=== PATIENT | male | born 1985 | race American Indian/Alaskan Native ===

== ENCOUNTER 2019-12-09 18:06 | Emergency (ER) | payer SELFPAY ==
[2019-12-09] MEDS ORDERED: HYDROcodone/ACETAMINOPHEN 7.5-325MG TAB PO ONE (19:38)
[2019-12-09] MEDS ORDERED: predniSONE 50 MG TAB PO ONE (19:38)
[2019-12-09] MEDS ORDERED: ONDANSETRON 4 MG ODT TAB PO ONE (19:38)
[2019-12-09 20:03] VITALS: BP 141/112
--- NOTE | 2019-12-09 20:16 | Emergency Department Report ---
ED General Adult HPI - General Chief complaint: Anxiety Stated complaint: ANXIETY/LOWER BACK/JOINT PAIN Source: patient Mode of arrival: Ambulatory Limitations: No Limitations - History of Present Illness Initial comments: Patient is a 34-year-old -[place] male with a history of HIV and chronic joint pains due to chronic osteoarthritis who presents to the ED with acute exacerbation of his chronic diffuse joint pains for the last 2 weeks after he ran out of his narcotic pain medications. Patient states that he usually takes [place] 5 mg - 325 mg prescribed by the pain clinic but states that he has not been to the pain clinic because he cannot afford the $250 consultation fee required during the visit. Patient states that he has also had worsening anxiety and insomnia because of a recent gastric biopsy procedure performed about 2 weeks ago, and whose results he has not been given. Patient states that in the last 3 days he has hardly slept because of worsening anxiety and worsening pain in his joints. Patient denies dizziness, syncope, fall, traumatic injury, heavy lifting, fever, chills, headache, abdominal pain, nausea and vomiting, chest pain, shortness of breath, dysuria, urinary frequency and urgency, lightheadedness or diarrhea, numbness and tingling or weakness of upper and lower extremities bilaterally. MD Complaint: Multiple joint pains; anxiety -: Sudden, week(s) (2) Location: upper extremity, lower extremity Radiation: non-radiation Severity scale (0 -10): 5 Quality: aching, sharp Consistency: constant Improves with: none Worsens with: movement Associated Symptoms: denies other symptoms. denies: confusion, chest pain, cough, diaphoresis, fever/chills, headaches, loss of appetite, malaise, nausea/vomiting, seizure, shortness of breath, syncope Treatments Prior to Arrival: none - Related Data Previous Rx's Medication Instructions Recorded Last Taken Type Baclofen [Lioresal] 10 mg PO Q8H PRN #21 tab 12/09/19 Unknown Rx hydrOXYzine PAMOATE [Vistaril] 25 mg PO Q8HR PRN #30 capsule 12/09/19 Unknown Rx predniSONE [Deltasone] 40 mg PO QDAY #10 tab 12/09/19 Unknown Rx traMADoL [Ultram] 50 mg PO Q6HR PRN #12 tablet 12/09/19 Unknown Rx Allergies Allergy/AdvReac Type Severity Reaction Status Date / Time No Known Allergies Allergy Unverified 12/09/19 18:09 ED Review of Systems ROS: Stated complaint: ANXIETY/LOWER BACK/JOINT PAIN Other details as noted in HPI Constitutional: denies: chills, fever Eyes: denies: eye pain, eye discharge, vision change ENT: denies: ear pain, throat pain Respiratory: denies: cough, shortness of breath, wheezing Cardiovascular: denies: chest pain, palpitations Endocrine: no symptoms reported Gastrointestinal: denies: abdominal pain, nausea, diarrhea Genitourinary: denies: urgency, dysuria Musculoskeletal: arthralgia (Diffuse joint pains), myalgia. denies: back pain, joint swelling Skin: denies: rash, lesions Neurological: denies: headache, weakness, paresthesias Psychiatric: anxiety, other (Insomnia). denies: depression Hematological/Lymphatic: denies: easy bleeding, easy bruising ED Past Medical Hx - Past Medical History Hx HIV: Yes Additional medical history: Chronic polyarticular joint pains - Surgical History Past Surgical History?: No - Social History Smoking Status: Current Every Day Smoker Substance Use Type: Alcohol, Marijuana - Medications Home Medications: Home Medications Medication Instructions Recorded Confirmed Last Taken Type Baclofen [Lioresal] 10 mg PO Q8H PRN #21 tab 12/09/19 Unknown Rx hydrOXYzine PAMOATE [Vistaril] 25 mg PO Q8HR PRN #30 capsule 12/09/19 Unknown Rx predniSONE [Deltasone] 40 mg PO QDAY #10 tab 12/09/19 Unknown Rx traMADoL [Ultram] 50 mg PO Q6HR PRN #12 tablet 12/09/19 Unknown Rx ED Physical Exam - General Limitations: No Limitations General appearance: alert, in no apparent distress, anxious - Head Head exam: Present: atraumatic, normocephalic, normal inspection - Eye Eye exam: Present: normal appearance, PERRL, EOMI Pupils: Present: normal accommodation - ENT ENT exam: Present: normal exam, normal orophraynx, mucous membranes moist, TM's normal bilaterally, normal external ear exam - Neck Neck exam: Present: normal inspection, full ROM - Respiratory Respiratory exam: Present: normal lung sounds bilaterally. Absent: respiratory distress, wheezes, rales, stridor, chest wall tenderness, accessory muscle use, decreased breath sounds - Cardiovascular Cardiovascular Exam: Present: regular rate, normal rhythm, normal heart sounds. Absent: systolic murmur, diastolic murmur, rubs, gallop - GI/Abdominal GI/Abdominal exam: Present: soft, normal bowel sounds. Absent: tenderness, guarding, rebound, hyperactive bowel sounds, hypoactive bowel sounds, organomegaly - Extremities Exam Extremities exam: Present: normal inspection, full ROM, tenderness (Palpable diffuse bilateral wrist, hand, knee and ankle joint tenderness), normal capillary refill - Back Exam Back exam: Present: normal inspection, full ROM, tenderness (Palpable lumbosacral paraspinal musculoskeletal tenderness), muscle spasm, paraspinal tenderness - Neurological Exam Neurological exam: Present: alert, oriented X3, CN II-XII intact, normal gait, reflexes normal - Psychiatric Psychiatric exam: Present: normal affect, normal mood, anxious - Skin Skin exam: Present: warm, dry, intact, normal color. Absent: rash ED Course Vital Signs 12/09/19 18:10 Temperature 98.3 F Pulse Rate 74 Respiratory 18 Rate Blood Pressure 178/115 O2 Sat by Pulse 100 Oximetry ED Medical Decision Making - Medical Decision Making This is a 34-year-old -[place] male with a history of HIV and chronic joint pains due to chronic osteoarthritis who presents to the ED with acute exacerbation of his chronic diffuse joint pains for the last 2 weeks after he ran out of his narcotic pain medications. Patient states that he usually takes [place] 5 mg - 325 mg prescribed by the pain clinic but states that he has not been to the pain clinic because he cannot afford the $250 consultation fee required during the visit. Patient states that he has also had worsening anxiet y and insomnia because of a recent gastric biopsy procedure performed about 2 weeks ago, and whose results he has not been given. Patient states that in the last 3 days he has hardly slept because of worsening anxiety and worsening pain in his joints. In the ED, patient is alert and oriented x3 and is not in distress. Patient was treated for pain in the ED and discharged home on pain medications and muscle relaxants, and was advised to follow-up with his primary care physician as previously scheduled. Patient was advised to return to the ED immediately if symptoms get worse. - Differential Diagnosis Chronic pain; anxiety; chronic osteoarthritis; muscle spasm; tendinitis Critical care attestation.: If time is entered above; I have spent that time in minutes in the direct care of this critically ill patient, excluding procedure time. ED Disposition Clinical Impression: Chronic pain syndrome, Spasm of muscle of lower back, Anxiety as acute reaction to exceptional stress Disposition: TO HOME OR SELFCARE Is pt being admited?: No Does the pt Need Aspirin: No Condition: Stable Instructions: Chronic Pain (ED), Generalized Anxiety Disorder (ED), Muscle Spasm (ED) Additional Instructions: Take medication with food, drink plenty of fluids and follow-up with your primary care physician in 5 to 7 days for reevaluation. Return to the ED immediately if symptoms get worse. Prescriptions: predniSONE [Deltasone] 40 mg PO QDAY #10 tab Baclofen [Lioresal] 10 mg PO Q8H PRN #21 tab PRN Reason: Muscle Spasm traMADoL [Ultram] 50 mg PO Q6HR PRN #12 tablet PRN Reason: Pain hydrOXYzine PAMOATE [Vistaril] 25 mg PO Q8HR PRN #30 capsule PRN Reason: Anxiety Referrals: [facility] [Provider Group] - 3-5 Days Time of Disposition: 20:19 Print Language: HEBREW
== END 2019-12-09 20:35 | disposition home or self-care (01) ==
LOC: ED 18:06
DX: F41.1 Generalized anxiety disorder (principal); F43.0 Acute stress reaction; M62.830 Muscle spasm of back; G89.4 Chronic pain syndrome; J45.901 Unspecified asthma with (acute) exacerbation; F17.200 Nicotine dependence, unspecified, uncomplicated; F12.90 Cannabis use, unspecified, uncomplicated; Z79.899 Other long term (current) drug therapy; Z21 Asymptomatic human immunodeficiency virus [HIV] infection status
CPT/HCPCS: 99282; J7512; Q0162